=== PATIENT | female | born 1960 | race Caucasian/White ===

== ENCOUNTER → 2021-06-19 16:00 | Outpatient (CLI) | payer BC, SELFPAY ==
--- NOTE | ~2021-06-19 | XR_ITS ---
[id number] DATE: 06/19/2021 16:17 INDICATION: Right pleuritic chest pain TECHNIQUE: COMPARISON: None FINDINGS: There is a recent minimally displaced posterolateral right eighth rib fracture. Lateral right recent 10th rib fracture is suggested. Additional fractures are not excluded. There is minimal discoid atelectasis or scarring in the lower lung zones. Lungs are moderately hyperi nflated but clear of consolidation. No pleural effusion or pneumothorax. Heart size normal. There is mild aortic unfolding. Several leads overlie the thoracic spinal canal. Degenerative spurring and scoliosis of the thoracic and lumbar spine. IMPRESSION: Recent lateral right 8 and 10 rib fractures; additional fractures are not excluded. Reviewed, dictated and finalized at [facility]. Reviewed, dictated and finalized at [facility]. IMPRESSION: Recent lateral right 8 and 10 rib fractures; additional fractures a re not excluded.
== END ==
PROVIDERS: PCP Family Medicine
DX: S22.41XA Multiple fractures of ribs, right side, initial encounter for closed fracture (principal); R07.81 Pleurodynia; M41.9 Scoliosis, unspecified
CPT/HCPCS: 71101